=== PATIENT | male | born 1945 | race American Indian/Alaskan Native ===

== ENCOUNTER 2021-11-30 09:02 | Emergency (ER) | payer MEDICARE ==
[~2021-11-30] VITALS: Ht 170.2 cm; Wt 80.0 kg
[2021-11-30] MEDS ORDERED: TETANUS, DIPHTHERIA, PERTUSSIS VAC/PF 0.5ML (>10YR OLD) IM ONE (10:15)
[2021-11-30] MEDS ORDERED: LIDOCAINE HCL/EPINEPHRINE 1%-EPI 1:100,000 20 ML VIAL INFIL ONE (10:15)
[2021-11-30] MEDS ORDERED: BACITRACIN ZINC OINT UDPKT TOP ONE (10:15)
[2021-11-30] MEDS ORDERED: MUPI1OIN4 TP (10:18)
[2021-11-30 22:00] VITALS: BP 158/92
== END 2021-12-01 00:24 ==
LOC: ER 09:02
DX: S01.111A Laceration without foreign body of right eyelid and periocular area, initial encounter (principal); R51.9 Headache, unspecified; I10 Essential (primary) hypertension; J44.1 Chronic obstructive pulmonary disease with (acute) exacerbation; W18.30XA Fall on same level, unspecified, initial encounter; Y93.89 Activity, other specified; Y92.89 Other specified places as the place of occurrence of the external cause; Y99.8 Other external cause status
CPT/HCPCS: 12013; 70450; 70486; 90471; 90715; 99284; J3490